=== PATIENT | female | born 1960 | race African-American/Black ===

== ENCOUNTER 2017-04-29 17:37 | Emergency (ER) | payer SELFPAY ==
[2017-04-29 17:49] VITALS: BP 138/49
--- NOTE | 2017-04-29 18:20 | RAD ---
Indication: Right foot injury. 3 views of the right foot demonstrates no fracture. No other bone or joint abnormality is noted. IMPRESSION: No fracture of the right foot is noted.
--- NOTE | 2017-04-29 18:23 | RAD ---
Indication: Right leg injury. 2 views of the right lower leg demonstrates no fracture. No other bone or joint abnormality is noted. IMPRESSION: No fracture of the right lower leg is noted.
--- NOTE | 2017-04-29 18:38 | UC ---
Lower Extremity/Ankle HPI - HPI Summary HPI Summary: had a cooler dropped on her right foot on 04/21---has pain in foot and ceballos - History of Current Complaint Hx Obtained From: Patient Hx Last Menstrual Period: menopause ?: No Onset/Duration: Sudden Onset, Lasting Days, Still Present Severity Initially: Moderate Severity Currently: Moderate Pain Intensity: 8 Pain Scale Used: 0-10 Numeric Aggravating Factor(s): Standing, Ambulation Alleviating Factor(s): Rest, Elevation Able to Bear Weight: Yes <Haylee Cohen - Last Filed: 04/29/17 21:50> <Jazmine Camp - Last Filed: 04/30/17 11:35> - History of Current Complaint Chief Complaint: UCLowerExtremity Stated Complaint: TOE INJURY, AND LEG PAIN Time Seen by Provider: 04/29/17 17:56 - Allergies/Home Medications Allergies/Adverse Reactions: Allergies Allergy/AdvReac Type Severity Reaction Status Date / Time Penicillin V Allergy Mild Rash Verified 02/08/16 15:58 [From Penicillin VK Potassium] PMH/Surg Hx/FS Hx/Imm Hx Previously Healthy: Yes - Surgical History Surgical History: None - Family History Known Family History: Positive: Unknown - Social History Occupation: Employed Full-time Lives: With Family Alcohol Use: None Substance Use Type: None Substance Use Comment - Amount & Last Used: 16 yrs clean Smoking Status (MU): Light Every Day Tobacco Smoker Type: Cigarettes Amount Used/How Often: 3-4 daily Length of Time of Smoking/Using Tobacco: 35 YEARS Have You Smoked in the Last Year: Yes <Haylee Cohen - Last Filed: 04/29/17 21:50> Review of Systems Constitutional: Negative Skin: Negative Eyes: Negative ENT: Negative Respiratory: Negative Cardiovascular: Negative Gastrointestinal: Negative Genitourinary: Negative Motor: Negative Neurovascular: Negative Musculoskeletal: Arthralgia - pain in to of foot, and Ceballos (R) Neurological: Negative Psychological: Negative All Other Systems Reviewed And Are Negative: Yes <Haylee Cohen - Last Filed: 04/29/17 21:50> Physical Exam Triage Information Reviewed: Yes Appearance: Well-Appearing, No Pain Distress, Well-Nourished Vital Signs: Initial Vital Signs Temp 97.4 F 04/29/17 17:42 Pulse 98 04/29/17 17:42 Resp 16 04/29/17 17:42 BP 138/49 04/29/17 17:42 Pulse Ox 100 04/29/17 17:42 Vital Signs Reviewed: Yes Eye Exam: Normal Eyes: Positive: Conjunctiva Clear ENT Exam: Normal ENT: Positive: Normal ENT inspection, Hearing grossly normal. Negative: Nasal congestion, Nasal drainage, Trismus, Muffled/hoarse voice Dental Exam: Normal Neck exam: Normal Neck: Positive: Supple, Nontender, No Lymphadenopathy Respiratory Exam: Normal Respiratory: Positive: Chest non-tender, Lungs clear, Normal breath sounds, No respiratory distress, No accessory muscle use Cardiovascular Exam: Normal Cardiovascular: Positive: RRR, No Murmur, Pulses Normal, Brisk Capillary Refill Musculoskeletal Exam: Normal Musculoskeletal: Positive: Strength Intact, ROM Intact, No Edema Neurological Exam: Normal Neurological: Positive: Alert, Muscle Tone Normal Psychological Exam: Normal Psychological: Positive: Normal Response To Family, Age Appropriate Behavior Skin Exam: Normal <Haylee Cohen - Last Filed: 04/29/17 21:50> Vital Signs: Initial Vital Signs Temp 97.4 F 04/29/17 17:42 Pulse 98 04/29/17 17:42 Resp 16 04/29/17 17:42 BP 138/49 04/29/17 17:42 Pulse Ox 100 04/29/17 17:42 <Jazmine Camp - Last Filed: 04/30/17 11:35> Diagnostics - Radiology No standard instances Xray Interpretation: No Acute Changes Radiology Interpretation Completed By: ED Physician <Haylee Cohen - Last Filed: 04/29/17 21:50> Lower Extremity Course/Dx - Course Course Of Treatment: cam boot, ibuprofen, rice, follow with pcp - Differential Dx/Diagnosis Differential Diagnosis/HQI/PQRI: Contusion, Fracture (Closed), Sprain, Strain Provider Diagnoses: Contusion right foot and ceballos <Haylee Cohen - Last Filed: 04/29/17 21:50> Discharge <Haylee Cohen - Last Filed: 04/29/17 21:50> <Jazmine Camp - Last Filed: 04/30/17 11:35> - Discharge Plan Condition: Stable Disposition: HOME Prescriptions: Hydrocodone-Acetaminophen [Hydrocodone/Acetaminophen 5-325 mg] 1 tab PO Q6H #10 tab MDD 4 Ibuprofen TAB* [Motrin TAB* 600 MG] 600 mg PO Q6H PRN #30 tab PRN Reason: Pain Patient Education Materials: Foot Contusion (ED), RICE Therapy (ED) Forms: *Work Release Referrals: [facility] [Outside] (if needed ) Attestation Statement User Type: Provider - I was available for consult. This patient was seen by the AYESHA. The patient was not presented to, seen by, or examined by me. -Danny <Jazmine Camp - Last Filed: 04/30/17 11:35>
== END 2017-04-29 18:57 | disposition home or self-care (01) ==
LOC: UCEAST 17:37
DX: S90.31XA Contusion of right foot, initial encounter (principal); X58.XXXA Exposure to other specified factors, initial encounter; Z78.0 Asymptomatic menopausal state; Z88.0 Allergy status to penicillin; F17.210 Nicotine dependence, cigarettes, uncomplicated
CPT/HCPCS: 99213; G0463

== ENCOUNTER 2017-05-07 08:33 | Emergency (ER) | payer SELFPAY ==
[2017-05-07 10:35] VITALS: BP 151/82
--- NOTE | 2017-05-07 11:23 | RAD ---
Indication: Persistent right leg pain after trauma. CT of the lower leg was obtained in the axial plane. Sagittal and coronal reconstructed images were obtained. Comparison is made with previous exam dated April 29, 2017. The ankle mortise is intact. No evidence of fracture is noted. The ankle joint is intact. No evidence of fracture is noted. No evidence of muscular edema is noted. There may be some nonspecific subcutaneous edema in the anterior lateral aspect of the lower calf. Nutrient vessels are otherwise unremarkable. No evidence of fracture is noted. The visualized tendons are grossly unremarkable. Mortise is intact. There is a evidence of a bony fragment inferior to the fibula. The margins are well corticated and this likely represents an accessory ossicle rather than an avulsion fracture. Clinical correlation is suggested. The ankle mortise is intact. There is an accessory ossicle adjacent to the navicular. IMPRESSION: Likely accessory ossicle adjacent to the fibula rather than a fracture. Clinical correlation is suggested. No other fractures or edema is noted. There is a accessory ossicle adjacent to the navicular.
--- NOTE | 2017-05-07 11:57 | UC ---
Lower Extremity/Ankle HPI - HPI Summary HPI Summary: Patient states she hurt her right leg at work on 04/21/17 and was seen and xrays were obtained and she was put in a walking boot. She returns today with continued complaints of left distal leg pain. She states the pain is worse with movement of the foot, or when walking. She reports localized swelling of the leg as well. She states the pain is constant, but worse with activity. She denies calf pain, leg edema, or prolonged immobility, or recent surgeries. - History of Current Complaint Chief Complaint: UCLowerExtremity Stated Complaint: RECHECK LEG INJURY Time Seen by Provider: 05/07/17 09:56 Hx Obtained From: Patient Hx Last Menstrual Period: menopause ?: No Onset/Duration: Sudden Onset Severity Initially: Moderate Severity Currently: Severe Aggravating Factor(s): Standing, Ambulation Alleviating Factor(s): Rest, Elevation Able to Bear Weight: Yes Related History: Occupational Injury - Risk Factors Gout Risk Factors: Age Over 40 DVT Risk Factors: Negative Septic Arthritis Risk Factor: Negative - Allergies/Home Medications Allergies/Adverse Reactions: Allergies Allergy/AdvReac Type Severity Reaction Status Date / Time Penicillin V Allergy Mild Rash Verified 05/07/17 09:03 [From Penicillin VK Potassium] PMH/Surg Hx/FS Hx/Imm Hx Previously Healthy: Yes - Surgical History Surgical History: None - Family History Known Family History: Positive: Unknown - Social History Occupation: Employed Full-time Lives: Alone Alcohol Use: None Substance Use Type: None Substance Use Comment - Amount & Last Used: 16 yrs clean Smoking Status (MU): Light Every Day Tobacco Smoker Type: Cigarettes Amount Used/How Often: 3-4 daily Length of Time of Smoking/Using Tobacco: 35 YEARS Have You Smoked in the Last Year: Yes Review of Systems Musculoskeletal: Decreased ROM - left distal localized swelling over the distal fibula. raised, and tender to palpaiton. rom;pain with flexion and extension. vasuclar + PP. neruo; no deficits. All Other Systems Reviewed And Are Negative: Yes Physical Exam Triage Information Reviewed: Yes Appearance: Well-Appearing Vital Signs: Initial Vital Signs Temp 98.6 F 05/07/17 08:58 Pulse 76 05/07/17 08:58 Resp 20 05/07/17 08:58 BP 154/81 05/07/17 08:58 Pulse Ox 100 05/07/17 08:58 Vital Signs Reviewed: Yes Eye Exam: Normal ENT Exam: Normal Neck exam: Normal Respiratory Exam: Normal Cardiovascular Exam: Normal Abdominal Exam: Normal Musculoskeletal: Positive: Strength Limited @ - left lower extremity., ROM Limited @, Edema @, Other: - LLE: locaized area of soft tissue swelling of the distal fibula, raised. tender to palpation. Rom: pain with flexion, and extension. Vasc;+PP, Neuro; Intact. Skin Exam: Normal Lower Extremity Course/Dx - Course Course Of Treatment: Patient returns with continued LLE lateral leg pain, CT was obtained referr to reprt. Patient was placed in a posterior splint, and made NWB. Wells score 0, I do not suspect DVT based on clinical findings and negative wells. I addressed pain with [place]. Dr. Polo was contacted the case reviewed and he will see her in his office, patient instructed to call and make an appointment. She verbalized understanding of and in agreement of the discharge plan. - Differential Dx/Diagnosis Differential Diagnosis/HQI/PQRI: Contusion, Other - suspect FX. Provider Diagnoses: suspect fracture Discharge - Discharge Plan Condition: Stable Disposition: HOME Prescriptions: Hydrocodone-Acetaminophen [[place] 5-325 mg] 1 tab PO Q6H PRN #14 tab MDD 4 PRN Reason: leg pain Patient Education Materials: Contusion in Adults (ED), Suspected Fracture (ED) Forms: *Work Release Referrals: Dillon Polo MD [Medical Doctor] - No Primary Care Phys,NOPCP [Primary Care Provider] -
== END 2017-05-07 12:00 | disposition home or self-care (01) ==
LOC: UCEAST 08:33
DX: M79.662 Pain in left lower leg (principal); R60.0 Localized edema; Z88.0 Allergy status to penicillin; F17.210 Nicotine dependence, cigarettes, uncomplicated
CPT/HCPCS: 99213; G0463

== ENCOUNTER 2018-08-08 12:37 | Emergency (ER) | payer OTHER ==
--- NOTE | 2018-08-08 12:42 | UC ---
Knee Pain HPI - HPI Summary HPI Summary: 57 yo female presents with RIGHT knee pain for the last 2 weeks. She tells me that she works a lot on her feet all day at [employer]. Over the last 2 weeks has noticed that towards the end of the day her right knee will become increasingly painful and swell. Over the last 2-3 days the pain has been worsening. She will RICE and take ibuprofen with good relief, but the pain and swelling always come back the next day after working all day. She denies injury , numbness, or tingling. She is ambulatory without assistance, but does have a limp. - History of Current Complaint Stated Complaint: R KNEE COMPLAINT Time Seen by Provider: 08/08/18 12:42 Hx Obtained From: Patient Hx Last Menstrual Period: menopause Onset/Duration: Gradual Onset Severity Initially: Moderate Severity Currently: Moderate Pain Intensity: 8 Pain Scale Used: 0-10 Numeric Alleviating Factor(s): Rest, Cold, OTC Meds Able to Bear Weight: Yes - Allergies/Home Medications Allergies/Adverse Reactions: Allergies Allergy/AdvReac Type Severity Reaction Status Date / Time Penicillins Allergy unk Verified 08/08/18 12:58 PMH/Surg Hx/FS Hx/Imm Hx - Additional Past Medical History Additional PMH: None - Surgical History Surgical History: None - Family History Known Family History: Positive: Unknown - Social History Occupation: Employed Full-time Lives: With Family Alcohol Use: None Substance Use Type: None Substance Use Comment - Amount & Last Used: 16 yrs clean Smoking Status (MU): Light Every Day Tobacco Smoker Type: Cigarettes Amount Used/How Often: 3-4 daily Length of Time of Smoking/Using Tobacco: 35 YEARS Have You Smoked in the Last Year: Yes Review of Systems All Other Systems Reviewed And Are Negative: Yes Constitutional: Positive: Negative Skin: Positive: Negative Respiratory: Positive: Negative Cardiovascular: Positive: Negative Neurovascular: Positive: Negative Musculoskeletal: Positive: Other: - Right knee pain Neurological: Positive: Negative Psychological: Positive: Negative Physical Exam - Summary Physical Exam Summary: GENERAL: NAD. WDWN. No pain distress. SKIN: No rashes, sores, lesions, or open wounds. CHEST: No accessory muscle use. Breathing comfortably and in no distress. CV: . Pulses intact popliteal, PT, and DP. Cap refill <2seconds MSK: RIGHT KNEE: Moderate TTP over medial aspect. FROM, pain with flexion. Strength 5/5. No edema or obvious bony deformities. No patella apprehension. Negative Sheela, A/P drawer, Elliott, and varus/valgus stress. NEURO: Alert. Sensations intact and symmetric B/L LEs PSYCH: Age appropriate behavior. Triage Information Reviewed: Yes Vital Signs: Vital Signs: Temp Pulse Resp BP Pulse Ox 98 F 67 17 167/84 100 08/08/18 12:53 08/08/18 12:53 08/08/18 12:53 08/08/18 12:53 08/08/18 12:53 Vital Signs Reviewed: Yes Knee Pain Course/Dx - Course Course Of Treatment: XR: IMPRESSION: NO ACUTE OSSEOUS INJURY. IF SYMPTOMS PERSIST, RECOMMEND REPEAT IMAGING. Pt was given toradol IM in the clinic with little relief of discomfort. Suspect tendinitis vs overuse pain. Advised to RICE , will write for 2 days off work, and rx for meloxicam. F/u with Orthopedics. - Differential Dx/Diagnosis Provider Diagnosis: Right knee pain Discharge - Sign-Out/Discharge Documenting (check all that apply): Patient Departure All imaging exams completed and their final reports reviewed: Yes - Discharge Plan Condition: Stable Disposition: HOME Prescriptions: Meloxicam 7.5 mg PO BID PRN #30 tab PRN Reason: Pain Patient Education Materials: Knee Pain (ED) Forms: *Work Release Referrals: No Primary Care Phys,NOPCP [Primary Care Provider] - Rochelle Loco MD [Medical Doctor] - As Soon As Possible Additional Instructions: If you develop a fever, shortness of breath, chest pain, new or worsening symptoms - please call your PCP or go to the ED. Your blood pressure was high at todays visit. Please see your primary provider within 4 weeks for recheck and re-evaluation. 1) Continue to rest, ice, and elevate your knee 2) Please call Orthopedics at the number below to schedule a follow up appointment - Billing Disposition and Condition Condition: STABLE Disposition: Home
[2018-08-08] MEDS ORDERED: Ketorolac INJ* 60 MG/2 ML VIAL IM ONE (12:48)
[2018-08-08 12:57] VITALS: BP 167/84
== END 2018-08-08 13:50 | disposition home or self-care (01) ==
LOC: UCEAST 12:37
DX: M25.561 Pain in right knee (principal); Z88.0 Allergy status to penicillin; F17.210 Nicotine dependence, cigarettes, uncomplicated
CPT/HCPCS: 96372; 99212; G0463; J1885